=== PATIENT | female | born 1980 | race Caucasian/White ===

== ENCOUNTER 2024-08-04 08:48 | Emergency (ER) | payer SELFPAY ==
[2024-08-04] VITALS (18 sets, daily range): BP systolic 111–178; BP diastolic 66–90; PULSE 64–87; RESP 12–23; TEMP 36.5–36.6; O2SAT 98–100; BMI 28.3
--- NOTE | 2024-08-04 08:48 | XR_ITS ---
FINAL REPORT CLINICAL HISTORY: R wrist fxr COMPARISON: none FINDINGS: RIGHT WRIST Three views show a severely comminuted fracture of the distal radius extending into the joint. There is mild dorsal displacement, dorsal angulation, and impaction. There is also a moderately displaced ulnar styloid process fracture. The joint spaces appear normal. IMPRESSION: Comminuted distal radius fracture and ulnar styloid process fracture. Reviewed, Interpreted and Dictated by Diana Nowak MD Transcribed by Herminia Ch Authenticated and [facility]
--- NOTE | 2024-08-04 08:48 | XR_ITS ---
FINAL REPORT CLINICAL HISTORY: wrist fxr COMPARISON: None FINDINGS: 2 views of the right forearm were obtained. There is a severely comminuted fracture of the distal radius extending into the joint. There is mild dorsal displacement, dorsal angulation, and impaction. There is also a moderately displaced ulnar styloid process fracture. The proximal radius and ulna are intact. The joints are intact. There are no soft tissue abnormalities. IMPRESSION: Comminuted distal radius fracture and ulnar styloid process fracture. Reviewed, Interpreted and Dictated by Diana Nowak MD Transcribed by Herminia Ch Authenticated and [facility]
--- NOTE | 2024-08-04 08:48 | XR_ITS ---
FINAL REPORT CLINICAL HISTORY: wrist fxr COMPARISON: None FINDINGS: RIGHT HAND Three views demonstrate a severely comminuted fracture of the distal radius extending into the joint. There is mild dorsal displacement, dorsal angulation, and impaction. There is also a moderately displaced ulnar styloid process fracture. No other fracture identified. The carpus is intact. The visualized joint spaces are normally aligned. The soft tissues are unremarkable. IMPRESSION: Comminuted distal radius fracture and ulnar styloid process fracture. Reviewed, Interpreted and Dictated by Diana Nowak MD Transcribed by Herminia Ch Authenticated and [facility]
--- NOTE | 2024-08-04 08:52 | HMH.EDGENADL ---
Discharge Plan Disposition Patient Disposition: Home, Self-Care Prescriptions Prescriptions: New oxycodone 5 mg tablet 5 mg PO Q6H PRN (Reason: pain) Qty: 12 0RF Referrals Follow up/Referrals: Yinka Patel DO [Staff Physician] - See instructions Provider,Referral, [Primary Care Provider] - See instructions Activity Restrictions/Add. Instructions Additional Instructions/Restrictions: Give Tylenol 1000 mg and ibuprofen 400 mg every 6 hours as needed for pain. Take oxycodone as needed for breakthrough pain. Follow-up with orthopedic surgery next week. Please return emerged part with any new, concerning, worsening symptoms. Clinical Impressions Clinical Impression: Fracture of wrist Qualifiers: Encounter type: initial encounter Fracture type: closed Laterality: right Qualified Code(s): S62.101A - Fracture of unspecified carpal bone, right wrist, initial encounter for closed fracture Fall Qualifiers: Encounter type: initial encounter Qualified Code(s): W19.XXXA - Unspecified fall, initial encounter Instructions Patient Instructions: DI for Moderate Sedation, Moderate Sedation Print Language Print Language: Pashto Discharge ED Provider: Yonathan Mae General Adult HPI General Chief complaint: Fall Stated complaint: Fall Time Seen by Provider: 08/04/24 08:48 Mode of Arrival: EMS Source of Information: Patient Limitations: No Limitations History of Present Illness HPI narrative: This is a 44-year-old female with no significant past medical history who presents with right upper extremity injury after a fall on outstretched hand. States that she slipped on some ice and was holding her child in her left arm, landing on her outstretched right upper extremity. Reports an injury to the right wrist with deformity. Is visiting here and will be here until 08/24, in the process of moving. Denies hitting her head or any loss of consciousness. No other injuries. Related Data Previous Rx's ?Medication ?Instructions ?Recorded oxycodone 5 mg tablet 5 mg PO Q6H PRN pain #12 tabs 08/04/24 Allergies Allergy/AdvReac Type Severity Reaction Status Date / Time No Known Allergies Allergy Verified 08/04/24 09:00 [facility] Disclaimer: The information contained in this section may have been updated after the patient was seen, as this information can be updated by other users. Social History Smoking Status: Never smoker alcohol intake: never current occupational status: unemployed and previously employed Travel in the last 8 weeks: Inside the [place] ROS Obtained: Yes All systems reviewed & no additional complaints except as documented Physical Exam General General appearance: alert and in no apparent distress Eye Eye exam: Present normal appearance, PERRL and EOMI Respiratory Respiratory exam: Present normal lung sounds bilaterally; Absent respiratory distress Cardiovascular Cardiovascular exam: Present regular rate and normal rhythm Abdominal Exam Abdominal exam: Present soft and distention; Absent tenderness, guarding or rebound Expanded Upper Extremity Exam Right: Comment: Deformity to the right wrist. 2+ radial pulse. Neurovascular intact to the median/radial/ulnar nerve distributions Neurological Exam Neurological exam: Present alert and oriented X3 Skin Skin exam: Present warm and dry Medical Decision Making Medical Records Medical records reviewed: Yes I reviewed the patient's medical records. Screening: Per USPSTF and CDC recommendations, given the prevalence of disease in our region, it is our hospital?s policy to screen for HIV and viral Hepatitis for all patients aged 18 and over and those with ongoing risk factors. Elio Inquiry Pt receiving controlled substance: No Vital Signs: 08/04/24 08:48 08/04/24 09:10 08/04/24 09:31 Temperature 97.7 F Temperature Source Oral Pulse Rate 65 64 Pulse Rate [Left Radial] 76 Respiratory Rate 16 Blood Pressure 138/67 111/89 Blood Pressure [Right Arm] 148/87 H Blood Pressure Mean Blood Pressure Mean [Right Arm] 107 02 Sat by Pulse Oximetry 100 100 99 Oxygen Delivery Method Room Air Room Air Room Air Oxygen Flow Rate (LPM) 08/04/24 09:47 08/04/24 09:47 08/04/24 09:50 Temperature Temperature Source Pulse Rate 77 Pulse Rate [Left Radial] 72 69 Respiratory Rate 12 12 Blood Pressure 136/89 Blood Pressure [Right Arm] 136/89 155/84 H Blood Pressure Mean Blood Pressure Mean [Right Arm] 104 107 02 Sat by Pulse Oximetry 98 98 99 Oxygen Delivery Method Nasal Cannula Nasal Cannula Nasal Cannula Oxygen Flow Rate (LPM) 2 2 2 08/04/24 09:50 08/04/24 09:55 08/04/24 09:55 Temperature Temperature Source Pulse Rate 69 84 Pulse Rate [Left Radial] 84 Respiratory Rate 12 18 18 Blood Pressure 155/84 H 164/90 H Blood Pressure [Right Arm] 164/90 H Blood Pressure Mean Blood Pressure Mean [Right Arm] 114 02 Sat by Pulse Oximetry 99 100 100 Oxygen Delivery Method Nasal Cannula Nasal Cannula Nasal Cannula Oxygen Flow Rate (LPM) 2 2 2 08/04/24 10:00 08/04/24 10:00 08/04/24 10:05 Temperature Temperature Source Pulse Rate 86 Pulse Rate [Left Radial] 86 87 Respiratory Rate 23 23 13 Blood Pressure 164/84 H Blood Pressure [Right Arm] 164/84 H 178/90 H Blood Pressure Mean Blood Pressure Mean [Right Arm] 110 119 02 Sat by Pulse Oximetry 100 100 100 Oxygen Delivery Method Nasal Cannula Nasal Cannula Nasal Cannula Oxygen Flow Rate (LPM) 2 2 2 08/04/24 10:05 08/04/24 10:10 08/04/24 10:17 Temperature Temperature Source Pulse Rate 87 74 Pulse Rate [Left Radial] 74 Respiratory Rate 13 16 Blood Pressure 178/90 H 164/77 H Blood Pressure [Right Arm] 164/77 H Blood Pressure Mean 101 Blood Pressure Mean [Right Arm] 106 02 Sat by Pulse Oximetry 100 99 99 Oxygen Delivery Method Nasal Cannula Nasal Cannula Oxygen Flow Rate (LPM) 2 2 08/04/24 10:25 08/04/24 10:40 08/04/24 10:50 Temperature Temperature Source Pulse Rate 68 69 66 Pulse Rate [Left Radial] Respiratory Rate 15 14 Blood Pressure 145/80 H 139/75 130/85 Blood Pressure [Right Arm] Blood Pressure Mean 100 Blood Pressure Mean [Right Arm] 02 Sat by Pulse Oximetry 98 99 98 Oxygen Delivery Method Oxygen Flow Rate (LPM) 08/04/24 10:50 08/04/24 11:00 08/04/24 11:05 Temperature Temperature Source Pulse Rate 67 72 67 Pulse Rate [Left Radial] Respiratory Rate 13 15 18 Blood Pressure 132/66 130/72 128/76 Blood Pressure [Right Arm] Blood Pressure Mean Blood Pressure Mean [Right Arm] 02 Sat by Pulse Oximetry 100 99 99 Oxygen Delivery Method Oxygen Flow Rate (LPM) 08/04/24 11:15 08/04/24 11:30 08/04/24 11:47 Temperature 98 F Temperature Source Pulse Rate 73 69 68 Pulse Rate [Left Radial] Respiratory Rate 12 16 18 Blood Pressure 121/77 124/83 124/83 Blood Pressure [Right Arm] Blood Pressure Mean Blood Pressure Mean [Right Arm] 02 Sat by Pulse Oximetry 98 100 Oxygen Delivery Method Room Air Oxygen Flow Rate (LPM) Orders (Tests/Meds): ED MEDICATIONS Discontinued Medications Generic Name Dose Route Start Last Admin Trade Name Giovanni PRN Reason Stop Dose Admin Hydromorphone HCl 0.5 mg 08/04/24 08:50 08/04/24 09:04 Hydromorphone 2mg/Ml Syringe IV 08/04/24 08:51 0.5 mg ONCE ONE Administration Sodium Chloride 1,000 mls @ 999 mls/hr 08/04/24 09:40 08/04/24 10:09 Sod Chlor 0.9% 1000ml Bag IV 08/04/24 10:40 999 mls/hr .Q1H1M ONE Administration Ketamine HCl 22 mg 08/04/24 09:34 08/04/24 10:08 Ketamine 50mg/1ml Syringe IV 08/04/24 09:35 22 mg ONCE ONE Administration Lidocaine/Epinephrine 10 ml 08/04/24 09:36 08/04/24 10:08 Lidocaine 1% W/Epi 1:100,000 20ml Vial IJ 08/04/24 09:37 10 ml ONCE ONE Administration ORDERS Category Date Time Status Hand XR right minimum 3 views [XR hand RT min 3V] Stat Exams 08/04/24 08:48 Completed Wrist XR right minimum 3 views [XR wrist RT min 3V] Exams 08/04/24 09:52 Completed Stat XR forearm RT 2V Stat Exams 08/04/24 08:48 Completed XR wrist RT 2V Routine Exams 08/04/24 10:24 Completed XR wrist RT min 3V Stat Exams 08/04/24 08:48 Completed Medical Decision Narrative: In summary, this 44-year-old female with no significant past medical history presents to the emergency department today with injury to right wrist after a fall from standing. On initial evaluation patient is hemodynamically stable, nontoxic-appearing. Differential diagnosis includes but is not limited to fracture, neurovascular injury, sprain. Based on these concerns, I ordered x-ray imaging of the right hand, wrist, forearm. Patient received Dilaudid for treatment. XR personally interpreted demonstrates closed impacted, right distal radius fracture with intra-articular involvement. Discussed with orthopedic surgery who recommended reduction and sugar-tong splint placement and follow-up in clinic next week. Fracture was reduced and splinted as recommended and follow-up appointment was made for next week. Discharged with oxycodone for pain control. Procedures Orthopedic Fracture Reduction Fracture #1: Side: right Fracture Reduction Location: radius Analgesia: hematoma block and other (Pain dose ketamine) Technique: direct manipulation and finger traps Post Reduction X-rays Demonstrate: acceptable reduction Post-reduction neuro exam: no change Post-reduction vascular exam: no change Splint Applied: Yes Patient Tolerated Procedure: well Orthopedic Splinting/Casting Injury #1: Side: right Upper Extremity Injury Location: wrist Upper Extremity Immobilizer: sugar tong splint Post Cast/Splinting Neuro Status: no change Post Cast/Splinting Vasc Status: no change Critical Care Critical Care Time Critical Care Time: No
--- NOTE | 2024-08-04 08:59 | PC.NURSE ---
xr at bedside
[2024-08-04] MEDS: HYDROMORPHONE 2MG/ML SYRINGE 0.5 MG IV (09:04)
--- NOTE | 2024-08-04 09:31 | PC.NURSE ---
call made to ortho office to have dr araujo call ER to speak to
--- NOTE | 2024-08-04 09:33 | PC.NURSE ---
YUSUF YEE on phone with DR BROWN
--- NOTE | 2024-08-04 09:47 | PC.NURSE ---
Dr. Mae at for procedure.
--- NOTE | 2024-08-04 09:52 | XR_ITS ---
FINAL REPORT CLINICAL HISTORY: post reduction COMPARISON: 1 hour prior FINDINGS: RIGHT WRIST Three views show improved dorsal angulation and displacement from the prior exam following closed reduction. The ulnar styloid process displacement is significantly improved. No other abnormality identified. IMPRESSION: Improved alignment of the radial and ulnar fractures following closed reduction. Reviewed, Interpreted and Dictated by Diana Nowak MD Transcribed by Herminia Ch Authenticated and [facility]
[2024-08-04] MEDS: LIDOCAINE 1% W/EPI 1:100,000 20ML VIAL 10 ML IJ (10:08)
[2024-08-04] MEDS: KETAMINE 50MG/1ML SYRINGE 22 MG IV (10:08)
[2024-08-04] MEDS: 0.9 % SODIUM CHLORIDE 1000ML 1,000 ML 999 ML IV (10:09)
--- NOTE | 2024-08-04 10:12 | PC.NURSE ---
pt has a 1 week follow up with Dr. Patel on 08/11/24 at 2:00 PM. ER aware.
--- NOTE | 2024-08-04 10:24 | XR_ITS ---
FINAL REPORT CLINICAL HISTORY: POST REDUCTION WITH SPLINT COMPARISON: 15 minutes earlier FINDINGS: Two views of the right wrist were obtained. There has been interval application of a plaster cast. Anatomic reduction of the radial and ulnar fractures is noted. The fractures are difficult to visualize due to artifact obscuring fracture detail along with anatomic reduction. IMPRESSION: Complete closed reduction with application of plaster cast. Reviewed, Interpreted and Dictated by Diana Nowak MD Transcribed by Herminia Ch Authenticated and [facility]
--- NOTE | 2024-08-04 11:40 | PC.NURSE ---
Rounded on patient; no needs at this time
== END 2024-08-04 11:48 | disposition home or self-care (01) ==
PROVIDERS: Emergency Provider Student in an Organized Health Care Education/Training Program
DX: S62.101A Fracture of unspecified carpal bone, right wrist, initial encounter for closed fracture (principal); M25.531 Pain in right wrist; W00.0XXA Fall on same level due to ice and snow, initial encounter; Y93.89 Activity, other specified; Y92.9 Unspecified place or not applicable
CPT/HCPCS: 25660; 73090; 73100; 73110; 73130; 96361; 96374; 99152; 99283; J1171; J7030

== ENCOUNTER 2024-09-13 09:45 | Outpatient (CLI) | payer SELFPAY ==
--- NOTE | 2024-09-13 09:48 | XR_ITS ---
FINAL REPORT CLINICAL HISTORY: Rt wrist pain COMPARISON: 08/04/2024 FINDINGS: RIGHT WRIST Three views demonstrate a comminuted distal radial fracture without bony union. There are transverse and longitudinal components. Fracture is mildly impacted and displaced. Transverse component appears improved. There is no subluxation or dislocation. There is also an ulnar styloid process fracture. IMPRESSION: Partial healing distal radial fracture. Recommend continued follow-up. Reviewed, Interpreted and Dictated by Diana Nowak MD Transcribed by Moriah Pettit Authenticated and [facility]
== END 2024-09-13 23:59 | disposition home or self-care (01) ==
PROVIDERS: Visit Provider Physician Assistant Surgical
DX: M25.531 Pain in right wrist (principal); S62.101A Fracture of unspecified carpal bone, right wrist, initial encounter for closed fracture
CPT/HCPCS: 73110

== ENCOUNTER 2024-10-06 09:51 | Outpatient (CLI) | payer SELFPAY ==
--- NOTE | 2024-10-06 09:58 | XR_ITS ---
FINAL REPORT CLINICAL HISTORY: right wrist fx COMPARISON: 09/13/2024 FINDINGS: RIGHT WRIST THREE VIEW FINDINGS: Three views show interval application of a fiberglass cast. Bony detail is obscured. There is a healing fracture of the distal radius. No significant displacement is seen. There is also an ulnar styloid process fracture. The joint spaces appear normal. IMPRESSION: Healing fracture distal radius. Bony detail obscured. Reviewed, Interpreted and Dictated by Diana Nowak MD Transcribed by Herminia Ch Authenticated and [facility]
--- NOTE | 2024-10-06 11:27 | XR_ITS ---
FINAL REPORT CLINICAL HISTORY: Distal right radius fx post cast removal COMPARISON: 1 hour prior and 09/13/2024 FINDINGS: RIGHT WRIST THREE VIEW FINDINGS: Three views show interval removal of overlying cast. There is a comminuted fracture of the distal radius with transverse and longitudinal components. Appearance is not significantly changed from the prior exam dated 09/13/2024. Ulnar styloid process fracture is also noted. There is mild osteopenia. IMPRESSION: No significant change distal radial fracture from exam nearly 1 month prior. Reviewed, Interpreted and Dictated by Diana Nowak MD Transcribed by Herminia Ch Authenticated and [facility]
== END 2024-10-06 23:59 | disposition home or self-care (01) ==
LOC: RAD 09:55
PROVIDERS: Visit Provider Physician Assistant
DX: M25.531 Pain in right wrist (principal); S52.501A Unspecified fracture of the lower end of right radius, initial encounter for closed fracture
CPT/HCPCS: 73110